=== PATIENT | male | born 1945 | race Caucasian/White ===

== ENCOUNTER 2018-09-16 12:43 | Outpatient (REF) | payer MEDICARE, BC, SELFPAY ==
[2018-09-16 19:19] LABS: BUN 18 mg/dL (7-18); CREATININE 0.94 mg/dL (0.70-1.30); Calcium 8.9 mg/dL (8.5-10.1); Chloride 99 mmol/L (98-107); Cholesterol 146 mg/dL (50-200); Glucose 100 mg/dL (70-100); HDL Cholesterol 54 mg/dL (40-60); LDL CHOLESTEROL 79 mg/dL (<100); Potassium 4.7 mmol/L (3.5-5.1); Sodium 134 mmol/L (136-145); Triglyceride 40 mg/dL (30-150)
== END 2018-09-16 13:03 ==
LOC: NCHCN 12:43
PROVIDERS: PCP Internal Medicine; Visit Provider Nurse Practitioner Family
DX: I25.10 Atherosclerotic heart disease of native coronary artery without angina pectoris (principal); N39.0 Urinary tract infection, site not specified; E55.9 Vitamin D deficiency, unspecified; N40.1 Benign prostatic hyperplasia with lower urinary tract symptoms; Z95.1 Presence of aortocoronary bypass graft; R31.9 Hematuria, unspecified
CPT/HCPCS: 80048; 80061; 82306; 83721; 87086

== ENCOUNTER 2019-10-03 21:53 | Outpatient (REF) | payer MEDICARE, BC, SELFPAY ==
[2019-10-03 21:34] LABS: Vitamin B12 580 pg/mL (193-986)
[2019-10-05 05:46] LABS: Vitamin D 25 Total 71.1 ng/ml (30-100)
== END 2019-10-03 22:13 ==
LOC: NCHCN 21:53
PROVIDERS: PCP Internal Medicine; Visit Provider Family Medicine
DX: E55.9 Vitamin D deficiency, unspecified (principal); Z13.21 Encounter for screening for nutritional disorder
CPT/HCPCS: 82306; 82607

== ENCOUNTER 2020-03-25 19:44 | Outpatient (REF) | payer MEDICARE, BC, SELFPAY ==
[2020-03-27 16:00] LABS: Patient Race White; SARS-CoV-2 RNA Undetected (Undetected); SARS-CoV-2 Specimen Source Nasal
== END 2020-03-25 20:04 ==
LOC: NCHCN 19:44
PROVIDERS: PCP Internal Medicine; Visit Provider Family Medicine
DX: J06.9 Acute upper respiratory infection, unspecified (principal)
CPT/HCPCS: U0003

== ENCOUNTER 2022-09-08 15:50 | Outpatient (REF) | payer MEDICARE, SELFPAY ==
[2022-09-08 20:57] LABS: Anion Gap 9.7 mmol/L (3-11); BUN 24 mg/dL (7-18); CO2 27.3 mmol/L (21.0-32.0); Calcium 8.7 mg/dL (8.5-10.1); Calculated LDL 84 mg/dL (<100); Chloride 106 mmol/L (98-107); Cholesterol 146 mg/dL (<200); Estimated GFR 76.56 (mL/min/1.73m2); Glucose 94 mg/dL (74-106); HDL Cholesterol 57 mg/dL (40-60); Potassium 4.5 mmol/L (3.5-5.1); Sodium 143 mmol/L (136-145); Triglyceride 25 mg/dL (<150)
== END 2022-09-08 15:51 | disposition home or self-care (01) ==
LOC: NCHCN 15:50
PROVIDERS: PCP Internal Medicine; Visit Provider Family Medicine
DX: I25.10 Atherosclerotic heart disease of native coronary artery without angina pectoris (principal)
CPT/HCPCS: 80048; 80061

== ENCOUNTER 2023-03-15 15:49 | Outpatient (REF) | payer MEDICARE, SELFPAY ==
[2023-03-15 16:43] LABS: Vitamin B12 360 pg/mL (193-986)
== END 2023-03-15 15:50 | disposition home or self-care (01) ==
LOC: NCHCN 15:49
PROVIDERS: PCP Internal Medicine; Visit Provider Family Medicine
DX: G62.9 Polyneuropathy, unspecified (principal)
CPT/HCPCS: 82607

== ENCOUNTER 2023-04-27 14:37 | Outpatient (REF) | payer MEDICARE, SELFPAY ==
[2023-04-27 14:56] LABS: Abs Immature Grans 0.02 10^3/uL (0.0-0.06); Absolute Basophil Count 0.03 10^3/uL (0.0-0.2); Absolute Eosinophil Count 0.21 10^3/uL (0.0-0.7); Basophils % 0.6; Eosinophils % 4.2; HCT 34.7 % (40.0-50.0); HGB 11.6 g/dL (13.5-17.5); Immature Grans % 0.4; Lymphocytes % 18.1; MCHC 33.4 % (32.0-36.0); MCV 99 fL (80-95); MPV 12.5 fL (8.0-11.0); Monocytes % 14.1; Neutrophils % 62.6; Platelet Count 158 10^3/uL (130-400); RBC 3.52 10^6/uL (4.36-5.78); RDW 13.2 % (11.8-14.1); RDW-SD 47.4 fL; WBC 4.96 10^3/uL (4.4-10.8)
== END 2023-04-27 14:38 | disposition home or self-care (01) ==
LOC: NCHCN 14:37
PROVIDERS: PCP Internal Medicine; Visit Provider Physician Assistant
DX: Z01.818 Encounter for other preprocedural examination (principal)
CPT/HCPCS: 85025

== ENCOUNTER 2023-07-05 10:58 | Outpatient (REF) | payer MEDICARE, SELFPAY ==
[2023-07-05 15:07] LABS: Iron 80 ug/dL (65-175); Total Iron Binding Capacity 336 ug/dL (250-450); Transferrin Sat 24 % (20-55)
[2023-07-05 15:13] LABS: BUN 18 mg/dL (7-18); CREATININE 1.1 mg/dL (0.70-1.30); Calcium 8.5 mg/dL (8.5-10.1); Chloride 105 mmol/L (98-107); Estimated GFR 67.86 (mL/min/1.73m2); Folate 6.9 ng/mL (8.6-20.0); Glucose 106 mg/dL (74-106); Potassium 4.5 mmol/L (3.5-5.1); Sodium 140 mmol/L (136-145)
== END 2023-07-05 10:59 | disposition home or self-care (01) ==
LOC: NCHCN 10:58
PROVIDERS: PCP Internal Medicine; Visit Provider Family Medicine
DX: D53.9 Nutritional anemia, unspecified (principal)
CPT/HCPCS: 80048; 82746; 83540; 83550

== ENCOUNTER 2024-02-14 20:37 | Outpatient (REF) | payer MEDICARE, SELFPAY | END 2024-02-14 20:38 | disposition home or self-care (01) | LOC: NCHCN 20:37 | PROVIDERS: PCP Internal Medicine; Visit Provider Family Medicine | DX: R39.9 Unspecified symptoms and signs involving the genitourinary system (principal); R82.89 Other abnormal findings on cytological and histological examination of urine | CPT/HCPCS: 87086 ==